=== PATIENT | female | born 1980 | race Caucasian/White ===

== ENCOUNTER 2025-01-31 08:48 | Outpatient (AMB) | payer OTHER, SELFPAY ==
--- OUTSIDE RECORDS SUMMARY | 2024-04-25 09:50 | XMS_ITS | Encounter Summary ---
Author Organization [facility] Address [address] [place] [address] Care Team Providers Care Manager Process Improvement Name Role Phone Unavailable Primary Care Provider [...] on 04/25/2024 10:26 AM. Workstation Name - [id number] Procedure Note Franck Aguilera MD - 05/16/2024 [...] MD on 0:26 AM. Workstation Name - [id number] Elsa Bui NP IMG XR PROCEDURES Final Result documented in this encounter Visit Diagnoses Diagnosis Unspecified injury of right foot, initial encounter documented in this encounter
--- OUTSIDE RECORDS SUMMARY | 2025-01-31 08:58 | XMS_ITS | Clinical Summary ---
Author Organization [facility] Address [address] [place] [address] Care Team Providers Care Cable Tool Operator Name Role Phone Unavailable Primary Care Provider Unavailabl e Social History Tobacco Use Types Packs/Day Years Used Date Smoking Tobacco: Never Assessed Sex and Gender Information Value Date Recorded Sex Assigned at Not on file Gender Identity Not on file Sexual Orientation Not on file Job Start Date Occupation Industry Not on file Not on file Not on file Plan of Treatment Health Maintenance Due Date Last Done Comments Hepatitis B Vaccines (1 of 3 - 3-dose series) 1979 Hepatitis C Screening 1979 COVID-19 Vaccine (#1) 1979 Depression Screening 1991 Preventative Health Evaluation 1997 Cervical Cancer Screening (Pap Smear) 2000 DTap / Tdap / Td (1 - Tdap) 01/04/2019 01/03/2019 Colon Cancer Screening (Colonoscopy) 2024 Influenza Vaccine (#1) 2025 2, 05/24/2020, 05/10/2019, Additional history exists Pneumococcal Vaccine Aged Out 10/18/2008 No long er eligible based on patient's age to complete this topic RSV Ped < 20 months Aged Out No longe r eligible based on patient's age to complete this topic
--- OUTSIDE RECORDS SUMMARY | 2025-01-31 08:58 | XMS_ITS | Encounter Summary ---
Author Organization [facility] Address [address] [place] [address] Phone Care Team Providers Care Housing Development Specialist Name Role Phone Unavailable Primary Care Provider Unavailabl e Encounter Details Date Type Department Care Team (Late st Contact Info) Description 04/26/2024 Scanned Document [facility] [place] [address] [place] [address] Elsa Bui APRN [address] [place] [id number] Social History Tobacco Use Types Packs/Day Years Used Date Smoking Tobacco: Never Smokeless Tobacco: Never Alcohol Use Standard Drinks/Week Comments Yes 0 (1 standard drink = 0.6 oz pur e alcohol) Comments Unknown Sex and Gender Information Value Date Recorded Sex Assigned at Not on file Legal Sex Female 7:09 AM EDT Gender Identity Female 04/25/2024 11:12 AM EDT Sexual Orientation Straight 04/25/2024 11 :12 AM EDT documented as of this encounter Plan of Treatment Not on file documented as of this encounter Procedures Procedure Name Priority Date/Time Associated Diagnosis Comments XR TOE RIGHT 2 + VW Routine 04/26/2024 10:11 AM EDT documented in this encounter Results * XR Toe Right 2+ Views (04/26/2024 10:11 AM EDT) Anatomical Region Laterality Modality Ankle, Foot, Ortho Foot Right Digital Radiography us Elsa Bui APRN IMG DIAGNOSTIC IMAGING ORD ERABLES Final Result documented in this encounter Visit Diagnoses Not on filedocumented in this encounter
--- NOTE | 2025-01-31 09:02 | MHC.OFFVIS ---
Vital Signs 01/31/25 09:04 Height 5 ft 1 in Weight 182 lb BMI 34.4 BP 138/66 Blood Pressure Location Lt brachial Position Sitting Pulse 86 Pulse Oximetry (%) 99 Oxygen Delivery Method Room Air Intake Visit Reasons: colo screening Intake Note: Patient new consult for 1st pre Colonoscopy screening. Patient cc: nauseas in the morning, abdominal pain with bloating, dizziness , poor appetite and between diarrhea and constipation. Manager Integrated Required: No Accompanied by: Self / Same As Patient Allergies No Known Allergies Allergy (Verified 01/31/25 09:02) HPI HPI colo screening: Details: 44-year-old female with past medical history of asthma, anxiety, status post cholecystectomy, endometriosis, IBS, insomnia is here today for initial consultation. Patient was sent to us for evaluation before going for colonoscopy. Patient has postprandial abdominal bloating, epigastric pain no matter what she eats. Reports dyspepsia without dysphagia or odynophagia. Patient reports that many times she was waking up in the morning with nausea. Her PCP switched her omeprazole to pantoprazole and started to take that at night time to prevent morning sickness is. Patient reports that not much improvement since the change. Still patient wakes up feeling nauseous. Patient reports that her bowels are not consistent. Occasionally she will have diarrhea then constipation. Denies melena, hematochezia, unintentional weight loss or ribbon like stools. Family history of CRC maternal grandmother. [facility] Medical History (Updated 01/31/25 @ 18:29 by Melia Edmonds, [facility]) Severe obesity (BMI 35.0-39.9) with comorbidity Insomnia IBS (irritable bowel syndrome) Gustatory rhinitis Endometriosis Dyspareunia, female Asthma Anxiety Surgical History History of arthroscopic knee surgery Hx laparoscopic cholecystectomy Family History Maternal Grandmother Colon cancer Social History (Updated 01/31/25 @ 09:06 by Leila Jerez) Household Members: Family Alcohol intake: never Patient Tobacco Use Status: Never used Tobacco Review of Systems Const Denies weight gain and Denies weight loss ENT Reports no additional complaints, Denies dysphagia and Denies odynophagia Card Reports no additional complaints Resp Reports no additional complaints GI Reports abdominal pain (Epigastric), Denies belching, Denies melena, Reports bloating, Denies change in bowel habits, Reports constipation, Denies dysphagia, Denies excessive flatus, Denies dyspepsia, Denies heartburn, Denies diarrhea, Reports loose stools, Denies nausea, Denies odynophagia and Denies vomiting Reports no additional complaints Musc Reports no additional complaints Neuro Reports no additional complaints Psych Reports no additional complaints Endo Reports no additional complaints Physical Exam Vital Signs: Last Vital Signs Pulse 86 01/31/25 09:04 BP 138/66 01/31/25 09:04 Pulse Ox 99 01/31/25 09:04 Oxygen Delivery Method Room Air 01/31/25 09:04 BMI result Body Mass Index 34.4 Const General: healthy appearing and no acute distress Nutritional Appearance: well nourished and obese Orientation/consciousness: patient oriented x3 Resp Effort & Inspection: normal respiratory effort, able to speak in complete sentences, no tracheal deviation and symmetric chest movement Auscultation: clear to auscultation bilaterally Cardio Rate: regular rate GI Inspection: Yes normal to inspection, No distended and Yes obesity Palpation (GI): Soft to palpation, not firm, nontender and No hepatosplenomegaly present Auscultation: normal bowel sounds General: Yes no CVA tenderness Back/Spine/Pelvis Back: no CVA tenderness Skin General skin exam: elasticity normal, turgor normal and dry skin Neuro General: patient oriented x3 Psych Appearance: grossly normal Mental Status: mental status grossly normal Assessment & Plan Assessment & Plan (1) IBS (irritable bowel syndrome): Code(s): K58.9 - Irritable bowel syndrome, unspecified Category: Medical Qualifiers: Irritable bowel syndrome type: with both diarrhea and constipation Qualified Code(s): K58.2 - Mixed irritable bowel syndrome (2) Postprandial epigastric pain: Code(s): R10.13 - Epigastric pain (3) Abdominal bloating: Code(s): R14.0 - Abdominal distension (gaseous) (4) Screen for colon cancer: Code(s): Z12.11 - Encounter for screening for malignant neoplasm of colon Plan Patient will try to take pantoprazole in the morning and famotidine at bedtime. Discussed importance of taking pantoprazole half an hour before her 1st meal of the day. Will order blood work, check lipase to rule out chronic pancreatitis. Will check thyroid study, vitamin B12, folate, vitamin-D level. Will rule out celiac disease. Patient reports constipation and occasional diarrhea. However patient reports that not feeling like she empties she can try taking Dulcolax. Hold Dulcolax if loose stools. Patient was encouraged to increase fluid intake and activity to promote better bowel motility. Avoid dietary triggers. Discussed with patient all FODMAP diet. List of food recommended as well as list of food to avoid given to patient. Message sent to Surgical schedules to book patient for both upper endoscopy and colonoscopy. Patient will follow-up in the office in 3 months, sooner on as needed basis. She is agreeable to this plan and verbalizes understanding of instructions. She was given the opportunity to ask questions and all questions answered. Thank you for allowing me to participate in her care Orders: Orders Lipase Today R10.9 - Unspecified abdominal pain TSH reflex Free T4 Today K59.00 - Constipation, unspecified Vitamin B12 and Folate Today R19.7 - Diarrhea, unspecified Vitamin D 25-OH (D2 and D3) Today E55.9 - Vitamin D deficiency, unspecified Transglutaminase IgA Today R10.9 - Unspecified abdominal pain Complete Blood Count no Diff Today K21.9 - Gastro-esophageal reflux disease without esophagitis Comprehensive Met. Panel Today K21.9 - Gastro-esophageal reflux disease without esophagitis Medications: New bisacodyl (Dulcolax (bisacodyl)) 10 mg (2 x 5 mg) PO BEDTIME 180 tabs 4RF famotidine (Pepcid) 20 mg PO BEDTIME 30 tabs 3RF K21.9 - Gastro-esophageal reflux disease without esophagitis polyethylene glycol 3350 (Miralax) As directed by gastroenterology department at [facility] 238 grams PO ONCE 238 grams 0RF Z12.11 - Encounter for screening for malignant neoplasm of colon Coding Level of Care Code New Pt Level 4 (42821) Diagnoses Irritable bowel syndrome with both constipation and diarrhea K58.2 Irritable bowel syndrome type: with both diarrhea and constipation Postprandial epigastric pain R10.13 Abdominal bloating R14.0 Screen for colon cancer Z12.11 Time Spent (min) 50 Comment 35 minute spent with patient and additional 15 minutes spent reviewing her records
[2025-01-31 09:04] VITALS: BP 138/66; PULSE 86; O2SAT 99; BMI 34.4
== END 2025-01-31 09:53 | disposition home or self-care (01) ==
LOC: HO.HGI 08:49
PROVIDERS: PCP Nurse Practitioner Family; Visit Provider Nurse Practitioner Family
DX: Z01.818 Encounter for other preprocedural examination (principal); Z12.11 Encounter for screening for malignant neoplasm of colon; K58.2 Mixed irritable bowel syndrome; R10.13 Epigastric pain; R14.0 Abdominal distension (gaseous)
CPT/HCPCS: S0285

== ENCOUNTER 2025-01-31 08:48 | Outpatient (REF) | payer OTHER, SELFPAY ==
[2025-01-31 10:48] LABS: Hematocrit 40.1 % (37.0-47.0); Hemoglobin 14.4 g/dl (12.0-16.0); Mean Corpuscular HGB Conc 35.9 g/dl (31.0-35.0); Mean Corpuscular Hemoglobin 31.0 pg (27.0-33.0); Mean Corpuscular Volume 86.4 fL (80.0-98.0); NRBC Abs Auto 0.000 X10*3/uL (0.0-0.012); NRBC Pct Auto 0.0 /100WBC (0.0-0.2); Platelet Count 349 X10*3/uL (160-400); Red Blood Count 4.64 X10*6/uL (4.20-5.50); White Blood Count 6.1 X10*3/uL (4.8-10.8)
[2025-01-31 11:16] LABS: Alanine Aminotransferase 34 U/L (0-31); Albumin Level 4.5 g/dL (3.5-5.0); Alkaline Phosphatase 54 U/L (39-117); Anion Gap 10 (12-20); Aspartate Amino Transferase 27 U/L (5-31); Blood Urea Nitrogen 11 mg/dL (9-16); Calcium 9.3 mg/dL (8.4-10.2); Carbon Dioxide 23 mmol/L (22-29); Chloride 108 mmol/L (96-108); Estimated Glomerular Filt Rate > 60; Lipase 20 U/L (8-78); Potassium 4.3 mmol/L (3.3-5.1); Sodium 137 mmol/L (135-145); Total Protein 7.4 g/dL (6.5-8.0)
[2025-01-31 11:40] LABS: Folate 8.3 ng/mL (> or = 4.0); Vitamin B12 383 pg/mL (200-900)
[2025-02-04 18:24] LABS: Vitamin D 25-OH, D2 <4 ng/mL; Vitamin D 25-OH, D3 22 ng/mL; Vitamin D 25-OH, Total 22 ng/mL (30-100)
== END 2025-01-31 08:49 | disposition home or self-care (01) ==
LOC: HO.LAB 08:48
PROVIDERS: PCP Nurse Practitioner Family; Visit Provider Nurse Practitioner Family
DX: R10.9 Unspecified abdominal pain (principal); K59.00 Constipation, unspecified; R19.7 Diarrhea, unspecified; E55.9 Vitamin D deficiency, unspecified; K21.9 Gastro-esophageal reflux disease without esophagitis; R14.0 Abdominal distension (gaseous)
CPT/HCPCS: 36415; 80053; 82306; 82607; 82746; 83690; 84443; 85027; 86364

== ENCOUNTER 2025-06-21 08:34 | Outpatient (AMB) | payer OTHER, SELFPAY ==
--- OUTSIDE RECORDS SUMMARY | 2024-04-25 08:50 | XMS_ITS | Encounter Summary ---
Author Organization [facility] Address [address] [place] [address] Care Team Providers Care Metal Sander Name Role Phone Unavailable Primary Care Provider Unavailabl e Encounter Details Date Type Department Care Team (Latest Contact Info) Description 04/25/2024 9:50 AM EDT Hospital Encounter TH HISTORIC ENCOUNTERS EASTERN CONVERSION ONLY Unspecified injury of right foot, initial encounter Social History Tobacco Use Types Packs/Day Years Used Date Smoking Tobacco: Never Assessed Comments Unknown Sex and Gender Information Value Date Recorded Sex Assigned at Not on file Legal Sex Female 9:23 PM EDT Gender Identity Not on file Sexual Orientation Not on file documented as of this encounter Plan of Treatment Not on file documented as of this encounter Procedures Procedure Name Priority Date/Time Associated Diagnosis Comments XR TOES - RIGHT Routine 04/25/2024 10:12 AM EDT Unspecified injury of right foot, initial encounter documented in this encounter Results * XR TOES - RIGHT (04/25/2024 10:12 AM EDT) Anatomical Region Laterality Modality Radiographic Nelly ging 04/25/2024 9:39 AM EDT Narrative 04/25/2024 10:26 AM EDT X-ray toes right Injury of the 2nd toe right foot Prior: None FINDINGS: Bones: Normal - No evidence of fracture or dislocation. The Lisfranc joint is intact. Bony density normal. No destructive lesion or periostitis. Joint spaces: Normal - The joint spaces are well-maintained. There is no evidence of significant osteoarthritic change. Soft tissues: Normal - The soft tissues show no evidence of ulceration. No joint effusion or foreign body is noted. IMPRESSION : Normal toe x-rays, no fracture Report reviewed and signed by : Dr. Franck Aguilera MD on 04/25/2024 10:26 AM. Workstation Name - [id number] Procedure Note Franck Aguilera MD - 05/16/2024 X-ray toes right Injury of the 2nd toe right foot Prior: None FINDINGS: Bones: Normal - No evidence of fracture or dislocation. The Lisfranc jointis intact. Bony density normal. No destructive lesion or periostitis. Joint spaces: Normal - The joint spaces are well-maintained. There is noevidence of significant osteoarthritic change. Soft tissues: Normal - The soft tissues show no evidence of ulceration.No joint effusion or foreign body is noted. IMPRESSION : Normal toe x-rays, no fracture Report reviewed and signed by : Dr. Franck Aguilera MD on 0:26 AM. Workstation Name - [id number] Elsa Bui NP IMG XR PROCEDURES Final Result documented in this encounter Visit Diagnoses Diagnosis Unspecified injury of right foot, initial encounter documented in this encounter
--- NOTE | 2025-06-21 08:38 | MHC.OFFVIS ---
Vital Signs 06/21/25 08:39 Height 5 ft 1 in Weight 195 lb BMI 36.8 BP 136/78 Blood Pressure Location Rt brachial Position Sitting Pulse 78 Pulse Source Pulse Oximeter Pulse Oximetry (%) 100 Oxygen Delivery Method Room Air Intake Visit Reasons: Follow up labs Intake Note: Est pt for mgmt of GERD w/ associated pain. Labs done. CC: C/O epigastric pain persistence and inconsistent BMs despite current therapies. [place] scheduled for Aug 2025. Traffic Circuit Engineer Required: No Accompanied by: Self / Same As Patient Allergies No Known Allergies Allergy (Verified 06/21/25 08:41) HPI HPI Follow up labs: Details: LAST VISIT: IBS (irritable bowel syndrome) Postprandial epigastric pain Abdominal bloating Screen for colon cancer Plan Patient will try to take pantoprazole in the morning and famotidine at bedtime. Discussed importance of taking pantoprazole half an hour before her 1st meal of the day. Will order blood work, check lipase to rule out chronic pancreatitis. Will check thyroid study, vitamin B12, folate, vitamin-D level. Will rule out celiac disease. Patient reports constipation and occasional diarrhea. However patient reports that not feeling like she empties she can try taking Dulcolax. Hold Dulcolax if loose stools. Patient was encouraged to increase fluid intake and activity to promote better bowel motility. Avoid dietary triggers. Discussed with patient all FODMAP diet. List of food recommended as well as list of food to avoid given to patient. Message sent to Surgical schedules to book patient for both upper endoscopy and colonoscopy. Patient will follow-up in the office in 3 months, sooner on as needed basis. She is agreeable to this plan and verbalizes understanding of instructions. She was given the opportunity to ask questions and all questions answered. ? Thank you for allowing me to participate in her care Orders Lipase Today R10.9 TSH reflex Free T4 Today K59.00 Vitamin B12 and Folate Today R19.7 Vitamin D 25-OH (D2 and D3) Today E55.9 Transglutaminase IgA Today R10.9 Complete Blood Count no Diff Today K21.9 Comprehensive Met. Panel Today K21.9 New bisacodyl (Dulcolax (bisacodyl)) 10 mg (2 x 5 mg) PO BEDTIME 180 tabs 4RF famotidine (Pepcid) 20 mg PO BEDTIME 30 tabs 3RF K21.9 polyethylene glycol 3350 (Miralax) As directed by gastroenterology department at [facility] 238 grams PO ONCE 238 grams 0RF Z12.11 TODAY'S VISIT Patient is here today for follow-up. Patient reports abdominal pain and bloating. Patient reports cramping not always related to food. She goes to the bathroom daily. Feels like she empties well. Denies any constipation. Denies any mucus in her stools. Denies melena, hematochezia, unintentional weight loss or ribbon like stools. Patient is a colonoscopy and upper endoscopy scheduled for August 30. Patient has prep at home and also with directions on how to prep and what to do before procedure. Patient still reports to have occasional epigastric pain sometimes after eating and sometimes hours after she eats. Denies feeling nauseous, denies dyspepsia, dysphagia or odynophagia. Patient reports that she does not experience any reflux. Tried pantoprazole however it was not helping. Patient did not tried Pepcid. Patient reports that she tried low FODMAP diet however did not see any difference in her symptoms. [facility] Medical History Severe obesity (BMI 35.0-39.9) with comorbidity Insomnia IBS (irritable bowel syndrome) Gustatory rhinitis Endometriosis Dyspareunia, female Asthma Anxiety Surgical History History of arthroscopic knee surgery Hx laparoscopic cholecystectomy Family History Maternal Grandmother Colon cancer Social History Household Members: Family Alcohol intake: never Patient Tobacco Use Status: Never used Tobacco Review of Systems Const Denies weight gain and Denies weight loss ENT Reports no additional complaints, Denies dysphagia and Denies odynophagia Card Reports no additional complaints Resp Reports no additional complaints GI Reports abdominal pain (Epigastric), Denies belching, Denies melena, Reports bloating, Denies change in bowel habits, Denies constipation, Denies dysphagia, Denies excessive flatus, Denies dyspepsia, Denies heartburn, Denies diarrhea, Reports loose stools, Denies nausea, Denies odynophagia and Denies vomiting Reports no additional complaints Musc Reports no additional complaints Neuro Reports no additional complaints Psych Reports no additional complaints Endo Reports no additional complaints Physical Exam Vital Signs: BMI result Body Mass Index 36.8 Const General: healthy appearing and no acute distress Nutritional Appearance: well nourished and obese Orientation/consciousness: patient oriented x3 Resp Effort & Inspection: normal respiratory effort, able to speak in complete sentences, no tracheal deviation and symmetric chest movement Auscultation: clear to auscultation bilaterally Cardio Rate: regular rate GI Inspection: Yes normal to inspection, No distended and Yes obesity Palpation (GI): Soft to palpation, not firm, nontender and No hepatosplenomegaly present Auscultation: normal bowel sounds General: Yes no CVA tenderness Back/Spine/Pelvis Back: no CVA tenderness Skin General skin exam: elasticity normal, turgor normal and dry skin Neuro General: patient oriented x3 Psych Appearance: grossly normal Mental Status: mental status grossly normal Assessment & Plan Assessment & Plan (1) IBS (irritable bowel syndrome): Code(s): K58.9 - Irritable bowel syndrome, unspecified Category: Medical Qualifiers: Irritable bowel syndrome type: with both diarrhea and constipation Qualified Code(s): K58.2 - Mixed irritable bowel syndrome (2) Postprandial epigastric pain: Code(s): R10.13 - Epigastric pain (3) Abdominal bloating: Code(s): R14.0 - Abdominal distension (gaseous) Plan Patient continues with epigastric pain. States that pantoprazole was not helping. Patient can take Pepcid as needed. Continue avoiding dietary triggers. Patient was encouraged to take fiber with pre and probiotics to help regularly in her bowels. Increase fluid intake and activity to promote bowel motility. Patient has colonoscopy and upper endoscopy on August 30. Patient reports that she understands the prep. Prep and directions home. Patient does not have any questions regarding. Has appointment with us after the procedure. Denies any cardiac or respiratory symptoms. No change since last visit. Patient is agreeable to current plan of care and verbalizes understanding of instructions. She was given the opportunity to ask questions and all questions answered. Thank you for allowing me to participate in her care Coding Level of Care Code Est Pt Level 3 (57647) Diagnoses Irritable bowel syndrome with both constipation and diarrhea K58.2 Irritable bowel syndrome type: with both diarrhea and constipation Postprandial epigastric pain R10.13 Abdominal bloating R14.0 Time Spent (min) 30 Comment 20 minutes spent with patient and additional 10 minutes spent reviewing her records
[2025-06-21 08:39] VITALS: BP 136/78; PULSE 78; O2SAT 100; BMI 36.8
--- OUTSIDE RECORDS SUMMARY | 2025-06-21 08:47 | XMS_ITS | Clinical Summary ---
Author Organization [facility] Address [address] [place] [address] Care Team Providers Care Band Top Maker Name Role Phone Unavailable Primary Care Provider [...]
--- OUTSIDE RECORDS SUMMARY | 2025-06-21 08:47 | XMS_ITS | Clinical Summary ---
Author Organization [address] Address [address] [place] [address] Care Team Providers Care Graphite Mill Operator Name Role Phone Unavailable Primary Care Provider Unavailabl e Allergies No known active allergies Medications LO LOESTRIN FE 1 mg-10 mcg (24)/10 mcg (2) per tablet 02/18/2024 Active Active Problems No known active problems Social History Tobacco Use Types Packs/Day Years Used Date Smoking Tobacco: Never Smokeless Tobacco: Never Tobacco Cessation:Counseling Given: Not Answered Alcohol Use Standard Drinks/Week Comments Yes 0 (1 standard drink = 0.6 oz pur e alcohol) Comments Unknown Sex and Gender Information Value Date Recorded Sex Assigned at Not on file Legal Sex Female 7:09 AM EDT Gender Identity Female 04/25/2024 11:12 AM EDT Sexual Orientation Straight 04/25/2024 11 :12 AM EDT Last Filed Vital Signs Vital Sign Reading Time Taken Comments Blood Pressure 124/82 04/25/2024 8:58 AM EDT Pulse 65 04/25/2024 8:58 AM EDT Temperature 36.7 C (98.1 F) 04/25/2024 8:58 AM EDT Respiratory Rate 16 04/25/2024 8:58 AM EDT Oxygen Saturation 98% 04/25/2024 8:58 AM EDT Inhaled Oxygen Concentration - - Weight 82.6 kg (182 lb) 04/25/2024 8:58 AM EDT Height - - Body Mass Index - - Plan of Treatment Health Maintenance Due Date Last Done Comments HIV screening 1992 Hepatitis C screening 1997 Cervical cancer screening 2000 Breast cancer screening 2019 Lipid disorder screening 2019 Colon cancer screening, Colonoscopy 2024 Diabetes screening 2024 Influenza vaccine 02/17/2025 04/04/2022, , 05/10/2019, Additional history exists Covid-19 vaccine series (4 - 2024- season) 2025 06/07/2021, 09/10/2020, 08/13/2020 Tetanus adult (Td q 10,TDAP once) 01/03/2029 01/03/2019 RSV Immunization (1 - 1-dose 75+ series) 2054 Pneumococcal Vaccine (2 - 49 years) Aged Out 10/18/2008 No longer eligible based on patient's age to complete this topic Meningococcal B Vaccine Aged Out No l onger eligible based on patient's age to complete this topic Meningococcal Vaccine Aged Out No rodney raffaele eligible based on patient's age to complete this topic Insurance COMMERCIAL GENERIC COMMERCIAL GENERIC COMMERCIAL GENERIC
--- OUTSIDE RECORDS SUMMARY | 2025-06-21 08:47 | XMS_ITS | Encounter Summary ---
Author Organization [facility] Address [address] [place] [address] Phone Care Team Providers Care Production Potter Name Role Phone Unavailable Primary Care Provider Unavailabl e Encounter Details Date Type Department Care Team (Late st Contact Info) Description 04/26/2024 Scanned Document [facility] [place] [address] [place] [address] Elsa Bui APRN [address] [place] [id number] Social History Tobacco Use Types Packs/Day Years [...]
--- OUTSIDE RECORDS SUMMARY | 2025-06-21 08:47 | XMS_ITS | Clinical Summary ---
Author Organization [facility] Address [address] [place] [address] Care Team Providers Care Stenographer Secretary Name Role Phone Unavailable Primary Care Provider Unavailabl e Social History Tobacco Use Types Packs/Day Years Used Date Smoking Tobacco: Never Assessed Comments Unknown Sex and Gender Information Value Date Recorded Sex Assigned at Not on file Legal Sex Female 9:23 PM EDT Gender Identity Not on file Sexual Orientation Not on file Plan of Treatment Health Maintenance Due Date Last Done Comments Breast Cancer Screening 1979 Colorectal Cancer Screening: Colonoscopy 1979 DTaP,Tdap,and Td Vaccines (1 - Tdap) 1998 Hepatitis B Vaccines (1 of 3 - 19+ 3-dose series) 1998 Cervical Cancer Screening: P ap Smear 2000 HIV Screening 05/15/2024 Hepatitis C Screening 05/15/2024 Social Influencers of Health Screening 05/15/2024 Depression Screening 07/20/2024 COVID-19 Vaccine (1 - 2024-2 6 season) 2025 Influenza Vaccine (#1) 2025 RSV Immunization Adult Patie nts (1 - 1-dose 75+ series) 2054 HIB Vaccines Aged Out No longer eligi ble based on patient's age to complete this topic HPV Vaccines Aged Out No longer eligi ble based on patient's age to complete this topic Hepatitis A Vaccines Aged Out No long er eligible based on patient's age to complete this topic IPV Vaccines Aged Out No longer eligi ble based on patient's age to complete this topic MMR Vaccines Aged Out No longer eligi ble based on patient's age to complete this topic Meningococcal ACWY Vaccine Aged Out N o longer eligible based on patient's age to complete this topic Meningococcal B Vaccine Aged Out No l onger eligible based on patient's age to complete this topic Pneumococcal Vaccine: Pediat rics (0 to 5 Years) and At-Risk Patients (6 to 49 Years) Aged Out No longer eligible b ased on patient's age to complete this topic RSV Immunization Patients Un carlos alberto 20 months Aged Out No longer eligible b ased on patient's age to complete this topic Varicella Vaccines Aged Out No longer eligible based on patient's age to complete this topic
--- OUTSIDE RECORDS SUMMARY | 2025-06-21 08:47 | XMS_ITS ---
Author Name [facility] Organization Unknown Encounters Encounter Type Encounter Reason Primary Diagnosis Location Date Ambulatory [facility] 04/26/20 24 Ambulatory Injury, other and unspecified, knee, leg, ankle, and foot Injury, other and unspecified, knee, leg, ankle, and foot [facility] 04/25/2024 Care Team Organization Name Specialty Phone Email Start Date End Da te [facility] 04/25/2024
== END 2025-06-21 09:12 | disposition home or self-care (01) ==
LOC: HO.HGI 08:34
PROVIDERS: PCP Nurse Practitioner Family; Visit Provider Nurse Practitioner Family
DX: K58.2 Mixed irritable bowel syndrome (principal); R10.13 Epigastric pain; R14.0 Abdominal distension (gaseous)
CPT/HCPCS: 99213